=== PATIENT | female | born 1980 | race Caucasian/White ===

== ENCOUNTER 2020-10-08 08:20 | Emergency (ER) | payer MEDICAID ==
[~2020-10-08] VITALS: Ht 160 cm; Wt 78.7 kg
[2020-10-08 08:24] VITALS: BP 116/68
== END 2020-10-08 10:03 | disposition home or self-care (01) ==
LOC: ER 08:21
DX: Z02.89 Encounter for other administrative examinations (principal); R53.83 Other fatigue
CPT/HCPCS: 99281

== ENCOUNTER 2021-07-08 15:38 | Emergency (ER) | payer MEDICAID ==
[~2021-07-08] VITALS: Ht 157.5 cm; Wt 88.6 kg
[2021-07-08 15:47] VITALS: BP 131/86
== END 2021-07-08 16:07 | disposition home or self-care (01) ==
LOC: ER 15:38
DX: T40.411A Poisoning by fentanyl or fentanyl analogs, accidental (unintentional), initial encounter (principal); Y92.89 Other specified places as the place of occurrence of the external cause
CPT/HCPCS: 99283

== ENCOUNTER 2021-11-30 13:48 | Emergency (ER) | payer MEDICAID ==
[~2021-11-30] VITALS: Ht 157.5 cm; Wt 86.4 kg
[2021-11-30] MEDS ORDERED: diphenhydrAMINE 50 mg/ml inj IM ONE (14:40)
[2021-11-30] MEDS ORDERED: LORazepam 2 mg/ml vial IM ONE (14:40)
[2021-11-30] MEDS ORDERED: haloperidol lactate 5mg/ml inj IM PRN (14:40)
[2021-11-30 15:02] LABS: BASOPHILS # (AUTO) 0.1 X10'3 (0-0.2); BASOPHILS % (AUTO) 0.5 % (0-1); EOSINOPHILS # (AUTO) 0.2 X10'3 (0-0.9); EOSINOPHILS % (AUTO) 1.5 % (0-6); HEMATOCRIT 39.7 % (35.0-45.0); HEMOGLOBIN 13.8 g/dl (12.0-16.0); LYMPHOCYTES # (AUTO) 3.6 X10'3 (1.1-4.8); LYMPHOCYTES % (AUTO) 33.5 % (21-51); MEAN CORPUSCULAR HEMOGLOBIN 30.9 PG (27.0-31.0); MEAN CORPUSCULAR HGB CONC 34.8 g/dL (33.0-36.5); MEAN CORPUSCULAR VOLUME 88.8 FL (78-98); MEAN PLATELET VOLUME 7.9 FL (7.4-10.4); MONOCYTES % (AUTO) 9.3 % (2-12); NEUTROPHILS # (AUTO) 5.9 X10'3 (1.8-7.7); NEUTROPHILS % (AUTO) 55.2 % (42-75); PLATELET COUNT 364 X10'3 (140-440); RED BLOOD COUNT 4.47 X10'6 (4.20-5.60); RED CELL DISTRIBUTION WIDTH 14.2 % (11.5-14.5); WHITE BLOOD COUNT 10.7 X10'3 (4.5-11.0)
--- NOTE | 2021-11-30 15:02 | NUR ---
The patient to bed 21 in the ER with security assisting. She was agitated and appeared fearful. IM medications given
[2021-11-30 15:16] LABS: CLARITY,URINE CLOUDY (Clear); COLOR,URINE YELLOW (Yellow); GLUCOSE, URINE NEGATIVE (Neg); KETONES,URINE 15 mg/dl (Neg); LEUKOCYTE ESTERASE ,URINE MODERATE (Neg); NITRITES, URINE NEGATIVE (Neg); OCCULT BLOOD,URINE MODERATE (Neg); PROTEIN,URINE NEGATIVE (Neg); UROBILINOGEN,URINE 0.2 E.U/dL (0.2-1.0)
[2021-11-30 15:17] LABS: URINE HCG NEGATIVE (NEG)
[2021-11-30 15:19] LABS: ALANINE AMINOTRANSFERASE 24 U/L (12-78); ALBUMIN 3.9 G/DL (3.4-5.0); ALKALINE PHOSPHATASE 97 IU/L (46-116); ANION GAP 8 (8-16); ASPARTATE AMINO TRANSFERASE 22 U/L (10-37); BILIRUBIN,TOTAL 0.8 MG/DL (0.1-1.0); BLOOD UREA NITROGEN 7 MG/DL (7-18); BUN/CREATININE RATIO 11.7 (6.6-38.0); CALCIUM 9.1 MG/DL (8.5-10.1); CHLORIDE 104 MMOL/L (99-107); GLUCOSE 86 MG/DL (70-104); POTASSIUM 3.1 MMOL/L (3.5-5.1); SODIUM 139 MMOL/L (135-145); eGFR > 90 ML/MIN
[2021-11-30 15:21] LABS: UA COLLECTION TYPE VOIDED
[2021-11-30 15:23] LABS: BACTERIA,URINE 1+ /HPF (Neg); MUCUS STRANDS FEW /LPF (Neg); SQUAMOUS EPITHELIAL CELL,UR MANY /LPF (FEW)
[2021-11-30 15:25] LABS: URINE AMPHETAMINE SCREEN POSITIVE (Neg); URINE BARBITUATE SCREEN NEGATIVE (Neg); URINE BENZODIAZEPINES SCREEN NEGATIVE (Neg); URINE CANNABINOID SCREEN POSITIVE (Neg); URINE COCAINE SCREEN NEGATIVE (Neg); URINE METHADONE SCREEN NEGATIVE (Neg); URINE OPIATE SCREEN NEGATIVE (Neg); URINE PHENCYCLIDINE SCREEN NEGATIVE (Neg)
[2021-11-30 15:28] LABS: ETHANOL < 0.010 GM/DL (0.0-0.010)
--- NOTE | 2021-11-30 16:55 | NUR ---
The patient is resting on her bed and appears to be asleep
--- NOTE | 2021-11-30 18:57 | NUR ---
The patient is sedated from medications. She did not wake up for her dinner. She did not respond to any questions.
[2021-11-30] MEDS ORDERED: potassium Cl 20 mEq SR tablet PO STA (20:50)
--- NOTE | 2021-11-30 21:10 | NUR ---
Discussed K+ level and UA results(not a clean catch) with Dr. Vaz and orders received for K replacement
--- NOTE | 2021-11-30 22:41 | NUR ---
The patient appears to be sleeping
--- NOTE | 2021-12-01 00:51 | NUR ---
The patient appears to be sleeping
--- NOTE | 2021-12-01 03:06 | NUR ---
The patient appears to be sleeping
--- NOTE | 2021-12-01 05:00 | NUR ---
The patient has appeared to have slept well throughout the night
[2021-12-01] MEDS: potassium Cl 20 mEq SR tablet PO SCH (05:03)
--- NOTE | 2021-12-01 06:41 | NUR ---
Patient sleeping supine. No distress observed. Continue to monitor.
--- NOTE | 2021-12-01 08:32 | NUR ---
Patient's tray at bedside. Patient continues to sleep. No distress observed. Continue to monitor.
--- NOTE | 2021-12-01 09:59 | NUR ---
Patient continues to sleep. Now on right side. No distress observed. Continue to monitor.
--- NOTE | 2021-12-01 11:55 | NUR ---
Patient sleeping on left side. No distress observed. Continue to monitor.
--- NOTE | 2021-12-01 13:08 | NUR ---
Patient is awake and eating her lunch. No distress observed. Continue to monitor.
--- NOTE | 2021-12-01 14:14 | NUR ---
Patient sleeping supine. No distress observed. Continue to monitor.
--- NOTE | 2021-12-01 16:05 | NUR ---
Sebastian [facility], evaluating patient. No distress observed. Continue to monitor.
--- NOTE | 2021-12-01 17:26 | NUR ---
Patient is on a 5150. Patient is sleeping on left side. No distress observed. Continue to monitor.
--- NOTE | 2021-12-01 18:34 | NUR ---
Received report, assumed care, pt is laying in bed asleep and change of shift. RR even and unlabored.
--- NOTE | 2021-12-01 18:35 | NUR ---
Received report, assumed care, pt is laying in bed asleep and change of shift. RR even and unlabored.
--- NOTE | 2021-12-01 20:04 | NUR ---
Pt was up to use the bathroom, states "BTW thanks for dinner it was really good." Pt went back to bed after using restroom.
--- NOTE | 2021-12-01 21:36 | NUR ---
Pt woke from sleeping and walked to the bathroom requested meds for sleep but then immediately went back to sleep.
--- NOTE | 2021-12-01 22:59 | NUR ---
pt up to use the restroom returns to bed and appears to be asleep
[2021-12-02] MEDS ORDERED: traZODone 50mg tablet PO STA (00:27)
--- NOTE | 2021-12-02 00:49 | NUR ---
Pt up to use the restroom and returned to bed
--- NOTE | 2021-12-02 02:57 | NUR ---
pt asleep rr even and unlabored
[2021-12-02] MEDS ORDERED: LORazepam 1 MG tablet PO STA (03:55)
[2021-12-02] MEDS: potassium Cl 20 mEq SR tablet PO SCH (04:01)
--- NOTE | 2021-12-02 04:01 | NUR ---
Pt awake yelling "Leave me alone! Help me!" Pt repeatedly waking and yelling, reports she is having "night terrors" provider notified, and pt was given prn ativan.
--- NOTE | 2021-12-02 04:59 | NUR ---
Pt is in bed asleep rr even and unlabored
[2021-12-02 05:23] VITALS: BP 104/60
--- NOTE | 2021-12-02 06:45 | NUR ---
Patient laying on right side and re-adjusting. No distress observed. Continue to monitor.
--- NOTE | 2021-12-02 08:11 | NUR ---
Patient eating breakfast. No distress observed. Continue to monitor.
== END 2021-12-02 09:48 ==
LOC: ER 13:48
DX: F15.959 Other stimulant use, unspecified with stimulant-induced psychotic disorder, unspecified (principal); Z20.822 Contact with and (suspected) exposure to COVID-19; E87.6 Hypokalemia; F17.200 Nicotine dependence, unspecified, uncomplicated; F11.10 Opioid abuse, uncomplicated
CPT/HCPCS: 36415; 80053; 80305; 80320; 81001; 81025; 84132; 84443; 85025; 87811; 96372; 99285; J1200; J1630; J2060

== ENCOUNTER 2021-12-22 16:40 | Emergency (ER) | payer MEDICAID ==
[~2021-12-22] VITALS: Ht 157.5 cm; Wt 86.4 kg
[2021-12-22 17:09] VITALS: BP 98/63
[2021-12-22] MEDS ORDERED: IBUP-1984 PO (17:33)
[2021-12-22] MEDS ORDERED: AMOX-117 PO (17:33)
[2021-12-22] MEDS ORDERED: ketorolac tromethamine 15mg/ml inj. IM ONE (17:40)
[2021-12-22] MEDS ORDERED: amox tr/potassium clavulanate 875/125mg TAB PO ONE (17:40)
--- NOTE | 2021-12-22 17:57 | NUR ---
po med given im given
== END 2021-12-22 17:58 | disposition home or self-care (01) ==
LOC: ER 16:41
DX: K08.89 Other specified disorders of teeth and supporting structures (principal); F15.20 Other stimulant dependence, uncomplicated; F19.10 Other psychoactive substance abuse, uncomplicated
CPT/HCPCS: 96372; 99283; J1885

== ENCOUNTER 2022-01-26 21:50 | Emergency (ER) | payer MEDICAID ==
[~2022-01-26] VITALS: Ht 157.5 cm; Wt 77.3 kg
[2022-01-26 22:32] VITALS: BP 142/89
[2022-01-27] MEDS ORDERED: NO HOME MEDS (07:37)
== END 2022-01-27 00:51 | disposition home or self-care (01) ==
LOC: ER 21:50
DX: T40.412A Poisoning by fentanyl or fentanyl analogs, intentional self-harm, initial encounter (principal); R45.851 Suicidal ideations; F15.10 Other stimulant abuse, uncomplicated; F11.10 Opioid abuse, uncomplicated; Y92.89 Other specified places as the place of occurrence of the external cause
CPT/HCPCS: 99281

== ENCOUNTER 2022-01-27 01:35 | Emergency (ER) | payer MEDICAID ==
[~2022-01-27] VITALS: Ht 157.5 cm; Wt 77.3 kg
[2022-01-27 02:16] LABS: URINE HCG NEGATIVE (NEG)
[2022-01-27 02:19] LABS: CLARITY,URINE SLIGHTLY CLOUDY (Clear); COLOR,URINE YELLOW (Yellow); GLUCOSE, URINE NEGATIVE (Neg); KETONES,URINE NEGATIVE (Neg); LEUKOCYTE ESTERASE ,URINE SMALL (Neg); NITRITES, URINE NEGATIVE (Neg); OCCULT BLOOD,URINE MODERATE (Neg); PROTEIN,URINE NEGATIVE (Neg); UROBILINOGEN,URINE 0.2 E.U/dL (0.2-1.0)
[2022-01-27 02:19] LABS: BASOPHILS # (AUTO) 0.1 X10'3 (0-0.2); BASOPHILS % (AUTO) 0.8 % (0-1); EOSINOPHILS # (AUTO) 0.1 X10'3 (0-0.9); EOSINOPHILS % (AUTO) 1.6 % (0-6); HEMATOCRIT 40.2 % (35.0-45.0); HEMOGLOBIN 13.6 g/dl (12.0-16.0); LYMPHOCYTES % (AUTO) 34.3 % (21-51); MEAN CORPUSCULAR HGB CONC 33.8 g/dL (33.0-36.5); MEAN CORPUSCULAR VOLUME 91.8 FL (78-98); MEAN PLATELET VOLUME 7.4 FL (7.4-10.4); MONOCYTES # (AUTO) 0.7 X10'3 (0-0.9); MONOCYTES % (AUTO) 8.2 % (2-12); NEUTROPHILS # (AUTO) 4.8 X10'3 (1.8-7.7); NEUTROPHILS % (AUTO) 55.1 % (42-75); PLATELET COUNT 397 X10'3 (140-440); RED BLOOD COUNT 4.38 X10'6 (4.20-5.60); RED CELL DISTRIBUTION WIDTH 14.9 % (11.5-14.5); WHITE BLOOD COUNT 8.8 X10'3 (4.5-11.0)
[2022-01-27 02:27] LABS: URINE AMPHETAMINE SCREEN POSITIVE (Neg); URINE BARBITUATE SCREEN NEGATIVE (Neg); URINE BENZODIAZEPINES SCREEN NEGATIVE (Neg); URINE CANNABINOID SCREEN POSITIVE (Neg); URINE COCAINE SCREEN NEGATIVE (Neg); URINE METHADONE SCREEN NEGATIVE (Neg); URINE OPIATE SCREEN NEGATIVE (Neg); URINE PHENCYCLIDINE SCREEN NEGATIVE (Neg)
[2022-01-27 02:28] LABS: UA COLLECTION TYPE CLN CATCH MIDSTREAM
[2022-01-27 02:29] LABS: BACTERIA,URINE FEW /HPF (Neg); SQUAMOUS EPITHELIAL CELL,UR FEW /LPF (FEW)
[2022-01-27 02:30] LABS: WBC,URINE 0-4 /HPF (0-4)
[2022-01-27 02:39] LABS: ALANINE AMINOTRANSFERASE 24 U/L (12-78); ALBUMIN 3.7 G/DL (3.4-5.0); ALBUMIN/GLOBULIN RATIO 0.9 (1.1-1.5); ALKALINE PHOSPHATASE 93 IU/L (46-116); ANION GAP 12 (8-16); ASPARTATE AMINO TRANSFERASE 15 U/L (10-37); BILIRUBIN,TOTAL 0.3 MG/DL (0.1-1.0); BLOOD UREA NITROGEN 9 MG/DL (7-18); BUN/CREATININE RATIO 12.9 (6.6-38.0); CALCIUM 8.4 MG/DL (8.5-10.1); CHLORIDE 101 MMOL/L (99-107); GLUCOSE 86 MG/DL (70-104); SODIUM 140 MMOL/L (135-145); TOTAL CARBON DIOXIDE 27.4 MMOL/L (24-32); TOTAL PROTEIN 7.8 G/DL (6.4-8.2); eGFR > 90 ML/MIN
[2022-01-27 02:45] LABS: ETHANOL < 0.010 GM/DL (0.0-0.010)
[2022-01-27 02:47] LABS: POTASSIUM 2.8 MMOL/L (3.5-5.1)
[2022-01-27] MEDS ORDERED: POTASSIUM BICARB 20meq eff tab 20 MEQ TABLET.EFF PO PRN (03:45)
[2022-01-27] MEDS ORDERED: potassium CL 10mEq/100ml bag 100 ML IV PRN (03:45)
[2022-01-27] MEDS: POTASSIUM BICARB 20meq eff tab 20 MEQ TABLET.EFF PO PRN ×3 (04:05→12:34)
--- NOTE | 2022-01-27 06:45 | NUR ---
Patient moved to bed #23 from main ER. Pt slightly agitated "I don't want to be in bed #23 it is evil."
--- NOTE | 2022-01-27 07:13 | NUR ---
Note undone in [facility] - 01/27/22 at 0715 by [email or web address] [facility] Addendum: 01/27/22 at 0713 by [email or web address] Amendment gifty in [facility] - 01/27/22 at 0715 by [email or web address] [facility] and [facility] packet faxed. Patient currently standing at entry to room, arms crossed, staring at newspaper writer and RN- appears agitated.
[2022-01-27] MEDS ORDERED: NO HOME MEDS (07:37)
--- NOTE | 2022-01-27 08:03 | NUR ---
Patient was sleeping, display card writer moved patient's belongings to locker and patient became agitated and escalated. Security called to bedside.
--- NOTE | 2022-01-27 08:12 | NUR ---
Pt required redirection r/t personal belongings being put in locker. Pt was growling stating "I am leaving!" "I want my stuff now!" Pt refused PO medications. Pt presents with some paranoia "I don't believe you," when told she would be evaluated this morning. Will continue to monitor.
--- NOTE | 2022-01-27 08:40 | NUR ---
Administered 2nd dose of Potassium bicarb 40 meq's. Pt is calm.
--- NOTE | 2022-01-27 09:00 | NUR ---
Patient resting comfortably, rr even and unlabored.
--- NOTE | 2022-01-27 10:06 | NUR ---
Sebastian with [facility] is at bedside evaluating the patient.
--- NOTE | 2022-01-27 11:03 | NUR ---
Pt resting comfortably on left side, rise and fall of chest noted, respirations even and unlabored.
--- NOTE | 2022-01-27 13:05 | NUR ---
Pt resting comfortably, respirations even and unlabored. Pt ate 100% of her lunch.
--- NOTE | 2022-01-27 14:23 | NUR ---
TC FROM [facility] WITH ACCEPTANCE TO [facility] IN [place], PENDING TSH AND POTASSIUM LEVELS WNL. ACCEPTANCE BY [facility] AT 1412. TRANSPORTATION WILL TENTATIVELY BE SET FOR 1999 THIS EVENING.
--- NOTE | 2022-01-27 15:05 | NUR ---
Pt resting comfortably on right side. Respirations even and unlabored.
--- NOTE | 2022-01-27 17:22 | NUR ---
Pt compliant with vitals, now back to sleep. No behaviors noted.
--- NOTE | 2022-01-27 18:32 | NUR ---
Patient appears to be resting comfortably in bed, in no apparent distress noted. 16 even and unlabored respirations.
--- NOTE | 2022-01-27 19:10 | NUR ---
Patient sitting up in bed having dinner.
--- NOTE | 2022-01-27 19:50 | NUR ---
Patient escorted out of overflow with Dwayne from [facility] and security system technician. All belongings, discharge instructions given. All documents given to [facility] staff. Patient ambulated out of unit with a steady gait.
[2022-01-27 19:59] VITALS: BP 105/61
== END 2022-01-27 19:50 ==
LOC: ER 01:35
DX: R45.851 Suicidal ideations (principal); Z20.822 Contact with and (suspected) exposure to COVID-19; R44.0 Auditory hallucinations; E87.6 Hypokalemia
CPT/HCPCS: 36415; 80053; 80305; 80320; 81001; 81025; 84132; 84443; 85025; 87635; 99285; C9803

== ENCOUNTER 2022-03-09 08:57 | Emergency (ER) | payer MEDICAID ==
[~2022-03-09] VITALS: Ht 157.5 cm; Wt 81.8 kg
[~2022-03-09 08:57] MED LIST: NO HOME MEDS
[2022-03-09 09:01] VITALS: BP 129/81
== END 2022-03-09 09:17 | disposition left against medical advice (07) ==
LOC: ER 08:58
DX: Z00.8 Encounter for other general examination (principal); Z53.21 Procedure and treatment not carried out due to patient leaving prior to being seen by health care provider

== ENCOUNTER 2022-03-11 07:18 | Emergency (ER) | payer MEDICAID ==
[~2022-03-11] VITALS: Ht 157.5 cm; Wt 85.0 kg
[2022-03-11 07:26] VITALS: BP 111/70
== END 2022-03-11 11:25 | disposition left against medical advice (07) ==
LOC: ER 07:18
DX: J02.9 Acute pharyngitis, unspecified (principal); Z53.21 Procedure and treatment not carried out due to patient leaving prior to being seen by health care provider

== ENCOUNTER 2022-03-12 12:27 | Emergency (ER) | payer MEDICAID | END 2022-03-12 13:41 | disposition left against medical advice (07) | LOC: ER 12:28 | DX: K13.79 Other lesions of oral mucosa (principal); Z53.21 Procedure and treatment not carried out due to patient leaving prior to being seen by health care provider ==

== ENCOUNTER 2024-09-29 23:28 | Emergency (ER) | payer MEDICAID ==
[~2024-09-29] VITALS: Ht 157.5 cm; Wt 95.8 kg
[~2024-09-29 23:28] MED LIST changes: +INVEGA IM; +NICO-503 PO; -NO HOME MEDS; +QUET25TA PO; +TRAZ-256 PO
--- NOTE | 2024-09-29 23:53 | ELECTROCARDIOGRAPH REPORT ---
[facility] Test Date: 2024-09-29 Test Time: 23:51:04 Pat Name: ASIYA CHRISTENSEN Department: [facility]-ER Patient ID: [facility]-[id number] Room: Gender: F Planning Technician: BLAINE : 1980 Requested By: DELFINO VASQUEZ Order Number: [id number] Reading MD: Dr. Ernesto Greenfield Measurements Intervals [place] Rate: 97 P: 76 ND: 156 QRS: 102 QRSD: 90 T: 56 QT: 355 QTc: 451 Interpretive Statements Sinus rhythm Right axis deviation Low voltage, precordial leads Electronically Signed On 09-30-2024 3:23:[address] Ernesto Greenfield Please click the below link to view image of tracing.
--- NOTE | 2024-09-30 00:19 | Physician Documentation ---
History of Present Illness ~ Chief Complaint: See Chief Complaint Stated Complaint: INGESTION ERROR Time Seen by MD: 00:16 OK to notify your PCP?: Yes Source: patient, RN/MD, RN notes reviewed, old records Mode of Arrival: POV Exam Limitations: no limitations HPI 43 year old female, with a history of schizoaffective disorder on lithium for two years, presents complaining of hearing her heartbeat in her head for the last few days, beginning after taking Suboxone. Patient reports that she "googled serotonin syndrome" and then became concerned that she may have this. She reports some recent nasal congestion, and reports that her usual phlegm taste a different today. She denies any back pain, body aches, fever, or sore throat. She denies any shortness of breath. She does smoke cigarettes but does not use any inhalers. Medication Reconciliation Allergies: Coded Allergies: No Known Allergies (Unverified , 09/29/24) Scheduled Quetiapine Fumarate (Seroquel), 2 TAB PO HS, (Reported) Trazodone HCl (Trazodone HCl), 1 TAB PO HS, (Reported) [Invega], IM [id number], (Reported) Scheduled PRN Nicotine Polacrilex* (Commit Lozenge*), 1 EA PO Q4H PRN for nicotine craving, (Reported) albuterol inhaler (Pro-Air Inhaler), 2 PUFFS INH Q4HPRN PRN for wheezing Past Medical History Past Medical History: *PSYCH*, Schizophrenia Past Surgical History: noncontributory Smoking Status: Current every day smoker Alcohol Use: Occasionally Drug Use: methamphetamine, heroin, other Lives In: Home Review of Systems All Other Systems at this time: Reviewed and Negative ROS As stated above in the HPI, otherwise all systems are reviewed and negative. Physical Exam Vital Signs: RN Vital Signs have been reviewed: Yes, Temperature: 99.1, Source: Oral, Heart Rate: 91, Respiratory Rate: 18, BP: 126/71, Pulse Oximetry: 99, Weight: 95.850 Oxygen Flow Rate: 0 Pulse Oximetry Reflects: adequate oxygenation Physical Exam General: The patient is well developed, well nourished, nontoxic appearing and is in no acute distress. Skin: [place], warm and dry with no rashes. HEENT: Head was normocephalic and atraumatic. Chest: Trace wheezing and rhonchi. No respiratory distress. No tachypnea. Heart: Regular rhythm, rapid rate. S1, S2. No murmurs. Palpation of the chest wall was normal. No rubs or thrills. Abdomen: Soft, nontender and nondistended. Positive bowel sounds. No guarding or rebound. Extremities: Trace edema. The patient moves all extremities. Pulses were equal and symmetric. Neurologic: Motor and sensation grossly intact. Cranial nerves II-XII grossly intact. A & O x4. Psychologic: Normal mood and affect. No agitation. Progress Progress Note 0158: Reevaluation: Patient reports her breathing is significantly improved and she can no longer hear her heartbeat in her head. Results/Orders Reviewed/noted all lab results: Yes Results/Orders Orders - ERNESTO GREENFIELD MD Electrocardiogram (09/30/24 00:19) Svn Treatment (09/30/24 00:24) Chest,Single View (09/30/24 00:24) Completed Orders - ERNESTO GREENFIELD MD Cbc/Diff (09/30/24 00:19) Ethanol (09/30/24 00:19) MG (09/30/24 00:19) BMP (09/30/24 00:19) Diazepam Tablet (Valium Tablet) (09/30/24 00:20) Ipratropium/Albuterol Nebule (Ipratrop/A (09/30/24 00:25) Chest,Single View (09/30/24 00:24) TSH (09/30/24 00:24) [place] Level (09/30/24 00:24) Vital Signs 09/29/24 09/30/24 09/30/24 09/30/24 23:32 00:57 01:01 02:06 Temp 99.1 98.7 Pulse 91 94 89 82 Resp 18 16 18 16 B/P (MAP) 126/71 125/78 Pulse Ox 99 92 96 95 O2 Delivery Room Air* Room Air* O2 Flow Rate 0 0 0 FiO2 21 21 Laboratory Tests Test 09/30/24 00:30 White Blood Count 8.1 Red Blood Count 4.37 Hemoglobin 14.2 Hematocrit 41.4 Mean Corpuscular Volume 94.8 Mean Corpuscular Hemoglobin 32.6 H Mean Corpuscular Hemoglobin Concent 34.4 Red Cell Distribution Width 13.8 Platelet Count 295 Mean Platelet Volume 7.3 L Neutrophils (%) (Auto) 62.2 Lymphocytes (%) (Auto) 26.9 Monocytes (%) (Auto) 8.4 Eosinophils (%) (Auto) 1.7 Basophils (%) (Auto) 0.8 Neutrophils # (Auto) 5.0 Lymphocytes # (Auto) 2.2 Monocytes # (Auto) 0.7 Eosinophils # (Auto) 0.1 Basophils # (Auto) 0.1 CBC Comment Sodium Level 139 Potassium Level 4.0 Chloride Level 103 Carbon Dioxide Level 34.4 H Anion Gap 2 L Blood Urea Nitrogen 4 L Creatinine 0.69 Estimated GFR/1.73 m2 > 90 BUN/Creatinine Ratio 5.8 L Glucose Level 111 H Calcium Level 8.2 L Magnesium Level 2.2 Albumin 3.5 Thyroid Stimulating Hormone (TSH) 3.77 Chemistry Comments [place] Level 0.6 L Ethyl Alcohol Level < 10 Re-Evaluation Re-Evaluation : Re-Evaluation: Improved Progress Patient was seen and examined. Patient was given reassurance. Patient had some trace wheezing. Patient received nebulized treatment duo neb. patient received Valium because she believes she had serotonin syndrome and was concerned. He did have a low-grade fever but did not have any autonomic instability or abnormal vitals. [place] was slightly subtherapeutic but she stopped taking her medications because she was concerned she had serotonin syndrome. She was encouraged to restart her medications and will take her nighttime lithium dose. Otherwise she appeared well with no other complaints. She remained hemodynamically stable as well. She did not have really any significant wheezing but states subjectively she feels much better after the breathing treatment. Laboratory work was reassuring. CBC within normal limits chemistry within normal limits. Glucose slightly elevated at 111. Magnesium normal at 2.2 potassium 4.0 toxicology was negative for alcohol and subtherapeutic with lithium at 0.6. Continuous library monitor interpretation shows normal sinus rhythm heart rate 90s, no ectopy, normal, my interpretation. Pulse oximetry monitor interpretation shows normal oxygenation at 95% room air, normal, my interpretation. EKG/XRAY/CT/US/VASC/MRI EKG : Additional Comment Test Date: 2024-09-29 Test Time: 23:51:04 Pat Name: ASIYA CHRISTENSEN Department: [facility]- Patient ID: [facility]-[id number] Room: Gender: F Photo Printer: BLAINE : 1980 Requested By: DELFINO VASQUEZ Order Number: [id number] Reading MD: Dr. Ernesto Greenfield Measurements Intervals [place] Rate: 97 P: 76 [place]: 156 QRS: 102 QRSD: 90 T: 56 QT: 355 QTc: 451 Interpretive Statements Sinus rhythm Right axis deviation Low voltage, precordial leads Electronically Signed On 09-30-2024 3:23:[address] Ernesto Greenfield (interpreted by me) Chest X-Ray : Additional Comments CHEST RADIOGRAPH Indication: cough Technique: Single frontal view of the chest was obtained COMPARISON: None FINDINGS: Lines and Tubes: None Lungs: Clear Pleura: No effusion. No pneumothorax. Cardiomediastinal contours: Unremarkable Bones: Unremarkable IMPRESSION: No abnormality demonstrated. Reviewed by me, Dr. Greenfield Medical Decision Making Additional info obtained from: old records Differential Dx:Considerations: Include: dehydration, hypoxia, drug overdose, encephalopathy, ETOH intoxication, medication toxicity, infection - sepsis, infection - UTI, hyperthermia, hypothermia, other Departure Time of Disposition: 02:00 Disposition: 01 HOME / SELF CARE / HOMELESS Impression: Primary Impression: General medical exam Additional Impression: Bronchospasm Condition: Stable Discharge Instructions: General Discharge Instructions Additional Instructions: Take your lithium this evening and do not skip any future doses. Use inhaler as needed. Follow up with your regular doctor and mental health physician. Return to the ER for new or worsening symptoms or other concerns. Prescriptions albuterol inhaler (Pro-Air Inhaler) 8.5 Gm Inhaler 2 PUFFS INH Q4HPRN PRN for wheezing for 30 Days, #18 GM Prov: ERNESTO GREENFIELD MD 09/30/24 Education Educated: Patient Educated regarding: diagnosis, treatment, need for follow up Signature Scribe Signature: Scribed for Ernesto Greenfield MD by Mariusz Loomis . 09/30/24 00:26 Attestation: The note accurately reflects work and decisions made by me.Ernesto Greenfield MD 09/30/24 00:19 ERNESTO GREENFIELD MD September 30, 2024 00:19 MARIUSZ GASTELUM September 30, 2024 00:32
[2024-09-30 00:41] LABS: BASOPHILS # (AUTO) 0.1 X10'3 (0-0.2); BASOPHILS % (AUTO) 0.8 % (0-1); EOSINOPHILS # (AUTO) 0.1 X10'3 (0-0.9); EOSINOPHILS % (AUTO) 1.7 % (0-6); HEMATOCRIT 41.4 % (35.0-45.0); HEMOGLOBIN 14.2 g/dl (12.0-16.0); LYMPHOCYTES # (AUTO) 2.2 X10'3 (1.1-4.8); LYMPHOCYTES % (AUTO) 26.9 % (21-51); MEAN CORPUSCULAR HEMOGLOBIN 32.6 PG (27.0-31.0); MEAN CORPUSCULAR HGB CONC 34.4 g/dL (33.0-36.5); MEAN CORPUSCULAR VOLUME 94.8 FL (78-98); MEAN PLATELET VOLUME 7.3 FL (7.4-10.4); MONOCYTES # (AUTO) 0.7 X10'3 (0-0.9); MONOCYTES % (AUTO) 8.4 % (2-12); NEUTROPHILS % (AUTO) 62.2 % (42-75); PLATELET COUNT 295 X10'3 (140-440); RED BLOOD COUNT 4.37 X10'6 (4.20-5.60); RED CELL DISTRIBUTION WIDTH 13.8 % (11.5-14.5); WHITE BLOOD COUNT 8.1 X10'3 (4.5-11.0)
[2024-09-30] MEDS: diazepam 5mg tablet PO ONE (00:48)
--- NOTE | 2024-09-30 00:51 | RADIOLOGY REPORT ---
CHEST RADIOGRAPH Indication: cough Technique: Single frontal view of the chest was obtained COMPARISON: None FINDINGS: Lines and Tubes: None Lungs: Clear Pleura: No effusion. No pneumothorax. Cardiomediastinal contours: Unremarkable Bones: Unremarkable IMPRESSION: No abnormality demonstrated.
[2024-09-30] MEDS: ipratropium/albuterol 3ml nebule NEB ONE (00:54)
[2024-09-30 00:57] VITALS: PULSE 94; RESP 16; O2SAT 92
[2024-09-30 01:01] VITALS: PULSE 89; RESP 18; O2SAT 96
[2024-09-30 01:07] LABS: ALBUMIN 3.5 G/DL (3.4-5.0); ANION GAP 2 (8-16); BLOOD UREA NITROGEN 4 MG/DL (7-18); BUN/CREATININE RATIO 5.8 (10.0-20.0); CALCIUM 8.2 MG/DL (8.5-10.1); CHLORIDE 103 MMOL/L (99-107); CREATININE 0.69 MG/DL (0.40-0.90); GLUCOSE 111 MG/DL (70-104); MAGNESIUM 2.2 MG/DL (1.5-2.4); SODIUM 139 MMOL/L (135-145); THYROID STIMULATING HORMONE 3.77 ulU/ml (0.34-4.50); TOTAL CARBON DIOXIDE 34.4 MMOL/L (24-32); eCRCL 81 ML/MIN; eGFR > 90 ML/MIN
[2024-09-30 01:56] LABS: ETHANOL < 10 MG/DL (<10)
[2024-09-30] MEDS ORDERED: ALBU8HFA INH (02:00)
[2024-09-30 02:06] VITALS: BP 125/78; PULSE 82; RESP 16; TEMP 98.7; O2SAT 95
== END 2024-09-30 02:12 | disposition home or self-care (01) ==
LOC: ER 23:29
DX: J98.01 Acute bronchospasm (principal); G90.81 Serotonin syndrome; F25.9 Schizoaffective disorder, unspecified; F17.210 Nicotine dependence, cigarettes, uncomplicated; F15.90 Other stimulant use, unspecified, uncomplicated; F11.90 Opioid use, unspecified, uncomplicated; F19.90 Other psychoactive substance use, unspecified, uncomplicated; Z79.899 Other long term (current) drug therapy; Z72.89 Other problems related to lifestyle
CPT/HCPCS: 36415; 71045; 80048; 80178; 80320; 83735; 84443; 85025; 93005; 94640; 99285